=== PATIENT | male | born 1990 | race Caucasian/White ===

== ENCOUNTER 2017-11-23 00:06 | Emergency (ER) | payer OTHER ==
[2017-11-23] MEDS ORDERED: ESOM40CA42 PO (00:16)
[2017-11-23] MEDS ORDERED: SERT-173 PO (00:16)
[2017-11-23] MEDS ORDERED: NS(*) 0.9% 1000 ML BAG 1,000 ML IV ONE (00:21)
[2017-11-23] MEDS ORDERED: IOPAMIDOL 76% 75 ML INFUS BTL 75 ML ONE (00:33)
--- NOTE | 2017-11-23 00:41 | ER Report ---
History and Physical Time Seen By MD: 00:36 Hx. of Stated Complaint: PATIENT STATES HE STARTED HAVING BLOOD IN HIS STOOL AROUND 2129, PATIENT STATES HIS STOMACH FEELS A LITTLE UPSET. HPI/ROS CHIEF COMPLAINT: GI bleed HISTORY OF PRESENT ILLNESS: Patient is a 27-year-old male here with complaints of bright red blood per rectum with dark clots which started approximately 0 this evening. Patient denies prior history of GI bleeding, abdominal pain, nausea, vomiting, fevers or chills. Patient is otherwise healthy and is on Nexium and an antidepressant. Patient denies prior history of peptic ulcer disease, diverticulitis, malignancy. Patient denies lightheadedness, weakness, fatigue, rash. REVIEW OF SYSTEMS: Constitutional: No fever, no chills. Eyes: No discharge. ENT: No sore throat. Cardiovascular: No chest pain, no palpitations. Respiratory: No cough, no shortness of breath. Gastrointestinal: No abdominal pain, no vomiting, + GI bleed with BRBPR and clot passage Genitourinary: No hematuria. Musculoskeletal: No back pain. Skin: No rashes. Neurological: No headache. Allergies: Coded Allergies: Penicillins (Verified Allergy, Severe, ANAPHALAXSIS IN BOTH PARENTS, 11/23/17) Home Meds Reported Medications Sertraline Hcl (ZOLOFT) 100 Mg Tablet, 1 TAB PO QDAY, TAB 11/23/17 Esomeprazole Magnesium (NEXIUM) 40 Mg Capsule.dr, 1 CAP PO QDAY, CAP 11/23/17 Hx Substance Use Disorder: No Hx Alcohol Use: Yes Constitutional Vital Sign - Last 24 Hours 11/23/17 00:11 Temp 98.1 Pulse 63 Resp 16 B/P (MAP) 136/79 Pulse Ox 94 O2 Delivery Room Air Intake and Output 11/22/17 11/22/17 11/23/17 15:00 23:00 07:00 Intake Total 1000 ml Balance 1000 ml Physical Exam General Appearance: The patient is alert, has no immediate need for airway protection and no signs of toxicity. No acute distress Eyes: Pupils equal and round no pallor or injection. ENT, Mouth: Mucous membranes are moist. Respiratory: There are no retractions, lungs are clear to auscultation. Cardiovascular: Regular rate and rhythm. Gastrointestinal: Abdomen is soft and non tender, no masses, bowel sounds normal. Neurological: No focal neurological deficits Skin: Warm and dry, no rashes. Musculoskeletal: Neck is supple non tender. Extremities are nontender, nonswollen and have full range of motion. DIFFERENTIAL DIAGNOSIS: After history and physical exam differential diagnosis was considered for upper versus lower GI bleed, diverticulitis, malignancy, hemorrhoids Medical Decision Making Data Points Result Diagram: 11/23/17 0033 11/23/17 0033 Laboratory Hematology Test 11/23/17 00:33 11/23/17 01:24 Red Blood Count 5.37 M/uL (4.00-5.60) Mean Corpuscular Volume 82.7 fL (80.0-96.0) Mean Corpuscular Hemoglobin 28.8 pg (26.0-33.0) Mean Corpuscular Hemoglobin Concent 34.9 g/dL (32.0-36.0) Red Cell Distribution Width 13.5 % (11.5-14.5) Mean Platelet Volume 7.3 fL (7.2-11.1) Neutrophils (%) (Auto) 57.2 % (39.4-72.5) Lymphocytes (%) (Auto) 30.7 % (17.6-49.6) Monocytes (%) (Auto) 7.8 % (4.1-12.4) Eosinophils (%) (Auto) 3.5 % (0.4-6.7) Basophils (%) (Auto) 0.8 % (0.3-1.4) Nucleated RBC Relative Count (auto) 0.0 /100WBC Neutrophils # (Auto) 4.2 K/uL (2.0-7.4) Lymphocytes # (Auto) 2.2 K/uL (1.3-3.6) Monocytes # (Auto) 0.6 K/uL (0.3-1.0) Eosinophils # (Auto) 0.3 K/uL (0.0-0.5) Basophils # (Auto) 0.1 K/uL (0.0-0.1) Nucleated RBC Absolute Count (auto) 0.00 K/uL Prothrombin Time 12.5 seconds (12.0-14.4) Prothromb Time International Ratio 0.94 Activated Partial Thromboplast Time 28 seconds (23-35) Sodium Level 139 mmol/L (137-145) Potassium Level 3.7 mmol/L (3.5-5.0) Chloride Level 102 mmol/L (98-107) Carbon Dioxide Level 24 mmol/L (22-30) Blood Urea Nitrogen 16 mg/dl (9-21) Creatinine 0.90 mg/dl (0.66-1.25) Glomerular Filtration Rate Calc > 60.0 Random Glucose 96 mg/dl (75-110) Calcium Level 9.2 mg/dl (8.4-10.2) Total Bilirubin 0.2 mg/dl (0.2-1.3) Aspartate Amino Transf (AST/SGOT) 30 U/L (0-35) Alanine Aminotransferase (ALT/SGPT) 57 U/L (0-56) Alkaline Phosphatase 51 U/L (0-126) C-Reactive Protein < 0.5 mg/dl (<1.0) Total Protein 7.4 g/dl (6.3-8.2) Albumin 4.3 g/dl (3.5-5.0) Lipase 90 U/L (23-300) Chemistry Test 11/23/17 00:33 11/23/17 01:24 White Blood Count 7.3 k/uL (4.5-11.0) Red Blood Count 5.37 M/uL (4.00-5.60) Hemoglobin 15.5 g/dL (14.0-18.0) Hematocrit 44.4 % (42.0-52.0) Mean Corpuscular Volume 82.7 fL (80.0-96.0) Mean Corpuscular Hemoglobin 28.8 pg (26.0-33.0) Mean Corpuscular Hemoglobin Concent 34.9 g/dL (32.0-36.0) Red Cell Distribution Width 13.5 % (11.5-14.5) Platelet Count 336 K/uL (150-450) Mean Platelet Volume 7.3 fL (7.2-11.1) Neutrophils (%) (Auto) 57.2 % (39.4-72.5) Lymphocytes (%) (Auto) 30.7 % (17.6-49.6) Monocytes (%) (Auto) 7.8 % (4.1-12.4) Eosinophils (%) (Auto) 3.5 % (0.4-6.7) Basophils (%) (Auto) 0.8 % (0.3-1.4) Nucleated RBC Relative Count (auto) 0.0 /100WBC Neutrophils # (Auto) 4.2 K/uL (2.0-7.4) Lymphocytes # (Auto) 2.2 K/uL (1.3-3.6) Monocytes # (Auto) 0.6 K/uL (0.3-1.0) Eosinophils # (Auto) 0.3 K/uL (0.0-0.5) Basophils # (Auto) 0.1 K/uL (0.0-0.1) Nucleated RBC Absolute Count (auto) 0.00 K/uL Prothrombin Time 12.5 seconds (12.0-14.4) Prothromb Time International Ratio 0.94 Activated Partial Thromboplast Time 28 seconds (23-35) Glomerular Filtration Rate Calc > 60.0 Calcium Level 9.2 mg/dl (8.4-10.2) Total Bilirubin 0.2 mg/dl (0.2-1.3) Aspartate Amino Transf (AST/SGOT) 30 U/L (0-35) Alanine Aminotransferase (ALT/SGPT) 57 U/L (0-56) Alkaline Phosphatase 51 U/L (0-126) C-Reactive Protein < 0.5 mg/dl (<1.0) Total Protein 7.4 g/dl (6.3-8.2) Albumin 4.3 g/dl (3.5-5.0) Lipase 90 U/L (23-300) Coagulation Test 11/23/17 00:33 Prothrombin Time 12.5 seconds Prothromb Time International Ratio 0.94 Activated Partial Thromboplast Time 28 seconds Urinalysis Test 11/23/17 01:24 EKG/Imaging Imaging CT of the abdomen and pelvis with contrast: Indication: Lower GI bleeding. Technique: Helical CT was performed through the abdomen and pelvis following IV contrast enhancement with 75 cc of Isovue-370. Multiplanar reconstructions are reviewed. One of the following dose optimization techniques was utilized in the performance of this exam: Automated exposure control; adjustment of the mA and/or kV according to the patient's size; or use of an iterative reconstruction technique. Specific details can be referenced in the facility's radiology CT exam operational policy. Comparison: None. Lower lung foreman: No focal parenchymal or pleural abnormality. Liver: Normal in size and shape. There appears to be mild fatty infiltration. No focal liver lesions are identified. There is uniform enhancement of the venous structures. Gallbladder/biliary tree: The gallbladder appears contracted, but otherwise unremarkable. The bile ducts are normal in caliber. Pancreas: Normal in size, shape, and density. Spleen: Normal in size, shape, and density. Adrenal glands: Within normal limits. Kidneys/urinary bladder: The kidneys appear normal in size, shape, and density. There is no evidence of obstructive uropathy. The bladder appears homogeneous and unremarkable. Intestinal structures: Unremarkable, as visualized. There are no signs of obstruction, mass, or focal inflammatory changes. The appendix appears normal. Pelvis: Unremarkable. Aorta and vascular structures: Within normal limits. Ascites or fluid collections: None seen. Skeletal structures: Intact and unremarkable. Impression: No acute process is identified in the abdomen or pelvis. ED Course/Re-evaluation ED Course Patient is a 27-year-old male here with complaints of GI bleeding due onset which started approximately 2129. Patient denies abdominal pain, nausea, vomiting, prior history of GI bleed. Patient describes the stools as bright red blood with clots. Denies history of hemorrhoids or peptic ulcer disease. Patient reports intermittently taking NSAIDs however is on Nexium for gastric reflux. Patient appears to be asymptomatic at time of reevaluation, hemodynamically stable. Hemoglobin and hematocrit were within normal limits per lab findings. CT imaging of the abdomen and pelvis showed no acute signs of inflammation or infection. Patient was advised to follow up with gastroenterology or general surgery in next couple days. Since patient is from [place], he will follow up in [place]. Type and screen was collected and in process. Patient was hemodynamically stable at time of discharge. Decision to Disposition Date: Nov 23, 2017 Decision to Disposition Time: 01:36 Depart Departure Latest Vital Signs Vital Signs Date Time Temp Pulse Resp B/P (MAP) Pulse Ox O2 Delivery O2 Flow Rate FiO2 11/23/17 00:11 98.1 63 16 136/79 94 Room Air Impression: Primary Impression: GI bleed Condition: Improved Disposition: HOME OR SELF-CARE Patient Instructions: Gastrointestinal Bleeding (ED) Additional Instructions: Please follow-up with Gen. surgery or gastroenterology on Saturday for further evaluation of gastrointestinal bleeding. Your blood counts were found to be normal at time of evaluation. Please return promptly to develop lightheadedness, dizziness, weakness, fatigue. ALEX PATRICIO DO Nov 23, 2017 00:40
[2017-11-23 00:43] LABS: PLATELET COUNT, AUTOMATED 336 K/uL (150-450)
[2017-11-23 00:54] LABS: INR 0.94
--- NOTE | 2017-11-23 01:25 | RADIOLOGY IMAGING REPORT ---
FACILITY: [facility] - [place] PATIENT NAME: Michel Barron : 1990 MR: [id number] V: [id number] EXAM DATE: ORDERING PHYSICIAN: ALEX PATRICIO TECHNOLOGIST: Location: [facility] [place] Patient: Michel Barron : 1990 Visit/Account:[id number] Date of Sevice: 11/23/2017 CT of the abdomen and pelvis with contrast: Indication: Lower GI bleeding. Technique: Helical CT was performed through the abdomen and pelvis following IV contrast enhancement with 75 cc of Isovue-370. Multiplanar reconstructions are reviewed. One of the following dose optimization techniques was utilized in the performance of this exam: Autom ated exposure control; adjustment of the mA and/or kV according to the patient's size; or use of an i terative reconstruction technique. Specific details can be referenced in the facility's radiology CT exam operational policy. Comparison: None. Lower lung foreman: No focal parenchymal or pleural abnormality. Liver: Normal in size and shape. There appears to be mild fatty infiltration. No focal liver lesions are identified. There is uniform enhancement of the venous structures. Gallbladder/biliary tree: The gallbladder appears contracted, but otherwise unremarkable. The bile du cts are normal in caliber. Pancreas: Normal in size, shape, and density. Spleen: Normal in size, shape, and density. Adrenal glands: Within normal limits. Kidneys/urinary bladder: The kidneys appear normal in size, shape, and density. There is no evidence of obstructive uropathy. The bladder appears homogeneous and unremarkable. Intestinal structures: Unremarkable, as visualized. There are no signs of obstruction, mass, or focal inflammatory changes. The appendix appears normal. Pelvis: Unremarkable. Aorta and vascular structures: Within normal limits. Ascites or fluid collections: None seen. Skeletal structures: Intact and unremarkable. Impression: No acute process is identified in the abdomen or pelvis. Report Dictated By: Melo Elizabeth MD at 11/23/2017 1:10 AM Report E-Signed By: Melo Elizabeth MD at 11/23/2017 1:21 AM [id number]
[2017-11-23 01:30] VITALS: BP 122/73
== END 2017-11-23 01:53 | disposition home or self-care (01) ==
LOC: ER 00:24
DX: K92.2 Gastrointestinal hemorrhage, unspecified (principal)
CPT/HCPCS: 74177; 81001; 83690; 85025; 85610; 85730; 86140; 86850; 86900; 86901; 96360; 99284; J7030; Q9967; 82040; 82247; 82310; 82374; 82435; 82565; 82947; 84075; 84132; 84155; 84295; 84450; 84460; 84520